=== PATIENT | female | born 1980 | race Caucasian/White ===

== ENCOUNTER 2018-06-04 07:33 | Inpatient (IN) ==
[2018-05-28 16:41] LABS: Basophils % 0.6 % (0.0-0.8); Eosinophils # 0.2 10*3/uL (0.0-0.87); Eosinophils % 2.1 % (0.00-10.9); Hematocrit 39.4 VOL% (35.7-47.0); Hemoglobin 13.2 GM/DL (12.0-16.0); Immature Granulocytes % 0.3 %; Immature Granulocytes Absolute 0.02 #; Lymphocytes # 2.1 10*3/uL (1.4-4.0); Lymphocytes % 29.7 % (21.3-54.2); Mean Corpuscular HGB Conc 33.5 GM/DL (32-36); Mean Corpuscular Hemoglobin 31 PG (27-34); Mean Corpuscular Volume 93.1 FL (87-102); Monocytes # 0.4 10*3/uL (0.11-0.8); Monocytes % 5.8 % (1.7-12.7); Neutrophils # 4.3 10*3/uL (1.4-7.4); Neutrophils % 61.5 % (38.7-73.9); Platelet Count 308 T/CUMM (130-400); Red Blood Count 4.23 MC/CUMM (3.8-5.5); Red Cell Distribution Width 12.6 % (9.3-17.3); White Blood Count 7.1 T/CUMM (4-12)
[2018-05-28 16:58] LABS: Calcium 9.1 MG/DL (8.5-10.1); Osmolality,Calculated 273.5 MOS/KG (273-304); Potassium 4.1 MMOL/L (3.5-5.1)
[~2018-06-04 07:33] MED LIST: ACETAMINOPHEN 1,000 MG/100 ML VIAL IV ONE; ACETAMINOPHEN INJ 1,000 MG in PREMIX 1 EACH IV ONE; HEPARIN 5,000 UNIT/1 ML VIAL ONE; HEPARIN 5,000 UNIT/1 ML VIAL SUBCUT ONE; HYOSCYAMINE 0.125 MG TABLET ONE; HYOSCYAMINE 0.125 MG TABLET SL ONE; LACTATED RINGERS 1,000 ML IV SCH; PANTOPRAZOLE 40 MG VIAL IV ONE; SCOPOLAMINE 1.5 MG PATCH TRANSDERM ONE; cefOXitin 3,000 MG in SYRINGE 1 EACH IV ONE
[2018-06-04] MEDS ORDERED: DIAZEPAM 5 MG TABLET PO ONE (07:53)
[2018-06-04] MEDS ORDERED: FAMOTIDINE 20 MG TABLET PO ONE (07:53)
[2018-06-04] MEDS ORDERED: SCOPOLAMINE 1.5 MG PATCH TRANSDERM ONE (08:18)
[2018-06-04] MEDS ORDERED: DIAZEPAM 5 MG TABLET ONE (08:19)
[2018-06-04] MEDS ORDERED: TISSUE ADHESIVE 1 EACH APPLICATOR TOP ONE (09:24)
[2018-06-04] MEDS ORDERED: BUPIVACAINE 0.25% /EPI 10 ML VIAL ONE (09:24)
[2018-06-04] MEDS ORDERED: LIDOCAINE 1%/EPI INJ 20 ML VIAL ONE (09:25)
[2018-06-04] MEDS ORDERED: BUPIVACAINE LIPOSOMAL 20 ML/266 MG VIAL ONE (09:25)
[2018-06-04] MEDS ORDERED: SUGAMMADEX 200 MG/2 ML VIAL IV ONE (11:44)
[2018-06-04] MEDS ORDERED: ONDANSETRON 4 MG/2 ML VIAL ONE (12:03)
[2018-06-04] MEDS ORDERED: ONDANSETRON 4 MG/2 ML VIAL IV PRN (12:09)
[2018-06-04] MEDS: HYDROmorphone 2 MG/1 ML VIAL IV PRN ×3 (12:13→12:25)
[2018-06-04] MEDS ORDERED: MIDAZOLAM 2 MG/2 ML VIAL ONE (12:56)
[2018-06-04] MEDS ORDERED: SEVOFLURANE 1 UNIT/15 MINUTE INH ONE (12:56)
[2018-06-04] MEDS ORDERED: DEXAMETHASONE 10 MG/1 ML VIAL ONE (12:56)
[2018-06-04] MEDS ORDERED: PROPOFOL 200 MG/20 ML VIAL IV ONE (12:56)
[2018-06-04] MEDS ORDERED: SUCCINYLCHOLINE 200 MG/10 ML VIAL ONE (12:57)
[2018-06-04] MEDS ORDERED: ePHEDrine 50 MG/ML AMP ONE (12:57)
[2018-06-04] MEDS ORDERED: ACETAMINOPHEN 1,000 MG/100 ML VIAL IV ONE (12:57)
[2018-06-04] MEDS ORDERED: KETOROLAC 30 MG/1 ML VIAL ONE (12:57)
[2018-06-04] MEDS ORDERED: ROCURONIUM 100 MG/10 ML VIAL IV ONE (12:57)
[2018-06-04] MEDS: ONDANSETRON 4 MG/2 ML VIAL IV PRN (15:56)
[2018-06-04] MEDS: PROMETHAZINE 25 MG/1 ML VIAL IM PRN ×2 (16:28→22:47)
[2018-06-04] MEDS: MORPHINE 4 MG/1 ML VIAL IV PRN ×2 (17:37→21:45)
[2018-06-04] MEDS: ceFAZolin 2,000 MG in PREMIX 1 EACH IV SCH (17:40)
[2018-06-04] MEDS: LACTATED RINGERS 1,000 ML IV SCH (18:07)
[2018-06-04] MEDS: HYDROcod/ACETAMIN 7.5-325 MG/15 ML UDCUP PO PRN (19:30)
[2018-06-05] MEDS: LACTATED RINGERS 1,000 ML IV SCH ×5 (00:20→22:36)
[2018-06-05] MEDS: hydrALAZINE 20 MG/1 ML VIAL IV PRN (00:21)
[2018-06-05] MEDS: ceFAZolin 2,000 MG in PREMIX 1 EACH IV SCH (01:28)
[2018-06-05] MEDS: ONDANSETRON 4 MG/2 ML VIAL IV PRN (02:46)
[2018-06-05] MEDS: MORPHINE 4 MG/1 ML VIAL IV PRN ×4 (02:46→16:54)
[2018-06-05 06:26] LABS: Basophils % 0.2 % (0.0-0.8); Hematocrit 38.6 VOL% (35.7-47.0); Hemoglobin 12.9 GM/DL (12.0-16.0); Immature Granulocytes % 0.6 %; Immature Granulocytes Absolute 0.07 #; Lymphocytes # 1.4 10*3/uL (1.4-4.0); Mean Corpuscular HGB Conc 33.4 GM/DL (32-36); Mean Corpuscular Hemoglobin 31 PG (27-34); Mean Corpuscular Volume 92.6 FL (87-102); Mean Platelet Volume 10.7 FL (9.6-12.0); Monocytes # 0.9 10*3/uL (0.11-0.8); Monocytes % 7.4 % (1.7-12.7); Neutrophils # 10.3 10*3/uL (1.4-7.4); Neutrophils % 80.8 % (38.7-73.9); Platelet Count 301 T/CUMM (130-400); Red Blood Count 4.17 MC/CUMM (3.8-5.5); Red Cell Distribution Width 12.8 % (9.3-17.3); White Blood Count 12.7 T/CUMM (4-12)
[2018-06-05 06:35] LABS: Calcium 8.9 MG/DL (8.5-10.1); Osmolality,Calculated 270.7 MOS/KG (273-304); Potassium 3.7 MMOL/L (3.5-5.1)
[2018-06-05] MEDS: PROMETHAZINE 25 MG/1 ML VIAL IM PRN ×2 (07:11→14:51)
[2018-06-05] MEDS: PANTOPRAZOLE 40 MG VIAL IV SCH (08:50)
[2018-06-05] MEDS ORDERED: ACETAMINOPHEN 325 MG/10.15 ML UDCUP PO PRN (09:19)
[2018-06-05] MEDS ORDERED: HYOSCYAMINE 0.5 MG/1 ML AMP IV PRN (11:44)
[2018-06-05] MEDS: SIMETHICONE CHEW 80 MG TABLET PO SCH ×3 (12:28→21:14)
[2018-06-05] MEDS: HYDROcod/ACETAMIN 7.5-325 MG/15 ML UDCUP PO PRN (19:18)
[2018-06-06] MEDS: MORPHINE 4 MG/1 ML VIAL IV PRN ×2 (00:09→03:52)
[2018-06-06] MEDS: LACTATED RINGERS 1,000 ML IV SCH ×3 (00:48→14:33)
[2018-06-06] MEDS: hydrALAZINE 20 MG/1 ML VIAL IV PRN (04:06)
[2018-06-06 05:16] LABS: Basophils # 0.1 10*3/uL (0.0-0.2); Basophils % 0.7 % (0.0-0.8); Eosinophils # 0.3 10*3/uL (0.0-0.87); Eosinophils % 2.9 % (0.00-10.9); Hematocrit 37.5 VOL% (35.7-47.0); Hemoglobin 12.8 GM/DL (12.0-16.0); Immature Granulocytes % 0.5 %; Immature Granulocytes Absolute 0.05 #; Lymphocytes # 1.6 10*3/uL (1.4-4.0); Lymphocytes % 16.7 % (21.3-54.2); Mean Corpuscular HGB Conc 34.1 GM/DL (32-36); Mean Corpuscular Hemoglobin 31 PG (27-34); Mean Corpuscular Volume 91.7 FL (87-102); Mean Platelet Volume 10.9 FL (9.6-12.0); Monocytes # 0.7 10*3/uL (0.11-0.8); Monocytes % 7.4 % (1.7-12.7); Neutrophils # 6.8 10*3/uL (1.4-7.4); Neutrophils % 71.8 % (38.7-73.9); Platelet Count 268 T/CUMM (130-400); Red Blood Count 4.09 MC/CUMM (3.8-5.5); Red Cell Distribution Width 12.6 % (9.3-17.3); White Blood Count 9.5 T/CUMM (4-12)
[2018-06-06 05:50] LABS: Calcium 8.8 MG/DL (8.5-10.1); Osmolality,Calculated 274.4 MOS/KG (273-304); Potassium 3.7 MMOL/L (3.5-5.1)
[2018-06-06] MEDS: PANTOPRAZOLE 40 MG VIAL IV SCH (08:45)
[2018-06-06] MEDS: SIMETHICONE CHEW 80 MG TABLET PO SCH (08:45)
[2018-06-06] MEDS: HYDROcod/ACETAMIN 7.5-325 MG/15 ML UDCUP PO PRN (08:46)
[2018-06-06] MEDS ORDERED: ENOXAPARIN 40 MG/0.4 ML SYRINGE SUBCUT SCH (09:00)
[2018-06-06 11:55] VITALS: BP 134/87
== END 2018-06-06 14:00 | disposition home or self-care (01) | DRG 620 ==
LOC: N.OR 07:33 → N.SDSINP 07:37 → N.3E 11:47
PROVIDERS: ADMIT Surgery; ATTEND Surgery